=== PATIENT | male | born 1960 | race Hispanic/Latino ===

== ENCOUNTER 2018-06-14 16:41 | Inpatient (IN) | payer OTHER | END 2018-06-20 17:00 | disposition home or self-care (01) | LOC: EDH 16:41 → EDHIP 19:00 → 3CH 20:51 | DX: L03.312 Cellulitis of back [any part except buttock and flank] (principal); Z68.42 Body mass index [BMI] 45.0-49.9, adult; L03.90 Cellulitis, unspecified; I10 Essential (primary) hypertension; E11.65 Type 2 diabetes mellitus with hyperglycemia; E66.01 Morbid (severe) obesity due to excess calories; L02.212 Cutaneous abscess of back [any part, except buttock and flank] ==

== ENCOUNTER 2018-06-26 08:58 | Emergency (ER) | payer OTHER ==
[~2018-06-26 08:58] MED LIST: AMLO5TAB9 PO; ATOR-2 PO; DULO20CA17 PO; FISH1CAP20 PO; GABA-531 PO; HYDR-4064 PO; HYDR25TA PO; LEVO25TA54 PO; LISI40TA4 PO; METF-446 PO; NAPR-1023 PO; TYL3 PO
[2018-06-26 09:58] LABS: BASOPHILS % (AUTO) 1.4 % (0.0-5.0); EOSINOPHILS % (AUTO) 4.1 % (0.0-8.0); HEMATOCRIT 41.9 % (42-54); LYMPHOCYTES % (AUTO) 33.7 % (21.0-51.0); MEAN CORPUSCULAR HEMOGLOBIN 29.5 pg (27.0-33.0); MEAN CORPUSCULAR HGB CONC 33.4 g/dL (32.0-36.0); MEAN CORPUSCULAR VOLUME 88.4 fL (79-99); MONOCYTES % (AUTO) 8.2 % (3.0-13.0); NEUTROPHILS % (AUTO) 52.6 % (40.0-77.0); PLATELET COUNT (AUTO) 258 K/uL (130-400); RED BLOOD CELL COUNT(AUTO) 4.74 MIL/uL (4.50-6.20); RED CELL DISTRIBUTION WIDTH 13.6 % (11.0-15.5); WHITE BLOOD COUNT (AUTO) 8.5 K/uL (4.8-10.8)
[2018-06-26 10:10] LABS: CREATININE 0.8 mg/dL (0.5-1.5)
[2018-06-26 10:16] LABS: ALBUMIN 3.9 g/dL (3.5-5.0); BILIRUBIN,TOTAL 0.4 mg/dL (0.2-1.0); TOTAL PROTEIN, SERUM 7.5 g/dL (6.0-8.3)
[2018-06-26 11:01] LABS: APPEARANCE,URINE Clear (CLEAR); BILIRUBIN,URINE Negative (NEGATIVE); COLOR,URINE Yellow (YELLOW); GLUCOSE, URINE (UA) >=1000 mg/dL (NEGATIVE); KETONES,URINE Negative (NEGATIVE); LEUKOCYTE ESTERASE ,URINE Negative (NEGATIVE); NITRATE,URINE Negative (NEGATIVE); OCCULT BLOOD,URINE Negative (NEGATIVE); PH,URINE 5.5 (5.0-8.0); PROTEIN,URINE POS 1+ (NEGATIVE); UROBILINOGEN,URINE 0.2 mg/dL (0.2-1.0)
[2018-06-26 11:13] LABS: BACTERIA,URINE Rare /HPF (None Seen); RBC,URINE None Seen /HPF (0-1); SQUAMOUS EPITHELIAL CELL,UR Rare /HPF (0-2); WBC,URINE 0-1 /HPF (0-1)
== END 2018-06-26 15:06 | disposition home or self-care (01) ==
LOC: EDH 08:58
DX: R11.2 Nausea with vomiting, unspecified (principal); T50.995A Adverse effect of other drugs, medicaments and biological substances, initial encounter; R10.84 Generalized abdominal pain; E11.9 Type 2 diabetes mellitus without complications; E78.5 Hyperlipidemia, unspecified; I10 Essential (primary) hypertension; E07.9 Disorder of thyroid, unspecified; Z79.4 Long term (current) use of insulin; Y92.89 Other specified places as the place of occurrence of the external cause
CPT/HCPCS: 36415; 80053; 81001; 82150; 83690; 84484; 85025; 93005; 96360; 96361

== ENCOUNTER 2018-09-27 20:05 | Emergency (ER) | payer OTHER ==
[2018-09-27] MEDS ORDERED: ACETAMINOPHEN EXTRA STRENGTH 500 MG TABLET ONE (20:22)
== END 2018-09-27 22:09 | disposition home or self-care (01) ==
LOC: EDH 20:05
DX: R21 Rash and other nonspecific skin eruption (principal); M79.605 Pain in left leg; L29.9 Pruritus, unspecified; E11.9 Type 2 diabetes mellitus without complications; E78.5 Hyperlipidemia, unspecified; I10 Essential (primary) hypertension; E07.9 Disorder of thyroid, unspecified; Z86.718 Personal history of other venous thrombosis and embolism
CPT/HCPCS: 93971

== ENCOUNTER 2019-01-18 19:36 | Emergency (ER) | payer OTHER ==
[~2019-01-18 19:36] MED LIST changes: -DULO20CA17 PO; +DULO20CA18 PO
[2019-01-18 20:52] LABS: BASOPHILS % (AUTO) 1.1 % (0.0-5.0); HEMATOCRIT 39.4 % (42-54); MEAN CORPUSCULAR HEMOGLOBIN 30.3 pg (27.0-33.0); MEAN CORPUSCULAR HGB CONC 33.9 g/dL (32.0-36.0); MEAN CORPUSCULAR VOLUME 89.3 fL (79-99); MONOCYTES % (AUTO) 9.6 % (3.0-13.0); NEUTROPHILS % (AUTO) 46.3 % (40.0-77.0); PLATELET COUNT (AUTO) 182 K/uL (130-400); RED BLOOD CELL COUNT(AUTO) 4.42 MIL/uL (4.50-6.20); RED CELL DISTRIBUTION WIDTH 13.5 % (11.0-15.5); WHITE BLOOD COUNT (AUTO) 7.8 K/uL (4.8-10.8)
[2019-01-18 21:04] LABS: POTASSIUM 3.6 mmol/L (3.5-5.1)
[2019-01-18 21:09] LABS: ALBUMIN 3.8 g/dL (3.5-5.0); BILIRUBIN,TOTAL 0.2 mg/dL (0.2-1.0); TOTAL PROTEIN, SERUM 7.1 g/dL (6.0-8.3)
[2019-01-18] MEDS ORDERED: DiphenhydrAMINE HCL 50 MG/ML VIAL ONE (22:03)
[2019-01-18] MEDS ORDERED: ACETAMINOPHEN 325 MG TAB ONE (22:03)
== END 2019-01-18 23:12 | disposition home or self-care (01) ==
LOC: EDH 19:36
DX: T78.3XXA Angioneurotic edema, initial encounter (principal); R51 Headache; E11.9 Type 2 diabetes mellitus without complications; E78.5 Hyperlipidemia, unspecified; I10 Essential (primary) hypertension; E07.9 Disorder of thyroid, unspecified; Z86.718 Personal history of other venous thrombosis and embolism; Z98.890 Other specified postprocedural states
CPT/HCPCS: 36415; 70450; 80053; 84484; 85025; 93005; 96374; 99285; J1200

== ENCOUNTER 2019-03-29 11:32 | Emergency (ER) | payer OTHER ==
[2019-03-29 13:21] LABS: CREATININE 1.1 mg/dL (0.5-1.5); POTASSIUM 3.8 mmol/L (3.5-5.1)
[2019-03-29 13:26] LABS: ALBUMIN 3.7 g/dL (3.5-5.0); BILIRUBIN,DIRECT 0.1 mg/dL (0.0-0.3); BILIRUBIN,TOTAL 0.2 mg/dL (0.2-1.0); TOTAL PROTEIN, SERUM 7.2 g/dL (6.0-8.3)
[2019-03-29] MEDS ORDERED: ACETAMINOPHEN EXTRA STRENGTH 500 MG TABLET ONE (14:04)
[2019-03-29 14:08] LABS: B-TYPE NATRIURETIC PEPTIDE 12 pg/mL (0-100)
[2019-03-29 14:10] LABS: BASOPHILS % (AUTO) 1.4 % (0.0-5.0); EOSINOPHILS % (AUTO) 3.7 % (0.0-8.0); HEMATOCRIT 37.9 % (42-54); LYMPHOCYTES % (AUTO) 18.7 % (21.0-51.0); MEAN CORPUSCULAR HEMOGLOBIN 30.5 pg (27.0-33.0); MEAN CORPUSCULAR VOLUME 89.7 fL (79-99); MONOCYTES % (AUTO) 8.2 % (3.0-13.0); NUCLEATED RED BLOOD CELLS 0.1 % (0.0-0.19); PLATELET COUNT (AUTO) 222 K/uL (130-400); RED BLOOD CELL COUNT(AUTO) 4.23 MIL/uL (4.50-6.20); RED CELL DISTRIBUTION WIDTH 13.8 % (11.0-15.5); WHITE BLOOD COUNT (AUTO) 11.1 K/uL (4.8-10.8)
[2019-03-29] MEDS ORDERED: CEFTRIAXONE SODIUM 1 GM ONE (15:07)
== END 2019-03-29 16:07 | disposition home or self-care (01) ==
LOC: EDH 11:32
DX: L03.116 Cellulitis of left lower limb (principal); R60.0 Localized edema; E11.9 Type 2 diabetes mellitus without complications; E78.5 Hyperlipidemia, unspecified; I10 Essential (primary) hypertension; E07.9 Disorder of thyroid, unspecified; Z79.4 Long term (current) use of insulin
CPT/HCPCS: 36415; 71046; 80048; 80076; 83605; 83880; 85025; 93970; 96374; 99285; J0696

== ENCOUNTER 2020-05-22 11:56 | Emergency (ER) | payer OTHER ==
[~2020-05-22 11:56] MED LIST changes: +AMLO-257 PO; -AMLO5TAB9 PO
[2020-05-22] MEDS ORDERED: MAG HYDROX/AL HYDROX/SIMETH ES 30 ML SUSP UDCUP ONE (12:31)
[2020-05-22] MEDS ORDERED: ONDANSETRON ODT 4 MG TAB ONE (12:31)
[2020-05-22] MEDS ORDERED: LIDOCAINE HCL 2% VISCOUS 15 ML UDCUP ONE (12:31)
[2020-05-22 12:34] LABS: BASOPHILS % (AUTO) 0.9 % (0.0-5.0); EOSINOPHILS % (AUTO) 14.3 % (0.0-8.0); HEMATOCRIT 42.4 % (42-54); LYMPHOCYTES % (AUTO) 27.4 % (21.0-51.0); MEAN CORPUSCULAR HEMOGLOBIN 29.4 pg (27.0-33.0); MEAN CORPUSCULAR VOLUME 88.9 fL (79-99); NEUTROPHILS % (AUTO) 50.1 % (40.0-77.0); PLATELET COUNT (AUTO) 258 K/uL (130-400); RED BLOOD CELL COUNT(AUTO) 4.77 MIL/uL (4.50-6.20); RED CELL DISTRIBUTION WIDTH 12.7 % (11.0-15.5); WHITE BLOOD COUNT (AUTO) 10.7 K/uL (4.8-10.8)
[2020-05-22 12:46] LABS: CREATININE 1.1 mg/dL (0.5-1.5); POTASSIUM 4.5 mmol/L (3.5-5.1)
[2020-05-22 12:53] LABS: ALBUMIN 3.4 g/dL (3.5-5.0); BILIRUBIN,TOTAL 0.4 mg/dL (0.2-1.0); TOTAL PROTEIN, SERUM 7.3 g/dL (6.0-8.3)
[2020-05-22 14:11] LABS: APPEARANCE,URINE Clear (CLEAR); BILIRUBIN,URINE Negative (NEGATIVE); COLOR,URINE Yellow (YELLOW); GLUCOSE, URINE (UA) 500 mg/dL (NEGATIVE); KETONES,URINE Trace mg/dL (NEGATIVE); LEUKOCYTE ESTERASE ,URINE Negative (NEGATIVE); NITRATE,URINE Negative (NEGATIVE); OCCULT BLOOD,URINE Trace (NEGATIVE); PH,URINE 5.5 (5.0-8.0); PROTEIN,URINE >=1000 mg/dL (NEGATIVE)
[2020-05-22] MEDS ORDERED: SODIUM CHLORIDE 0.9% 1000ML 1,000 ML IV ONE (14:36)
[2020-05-22] MEDS ORDERED: FAMOTIDINE/PF 20 MG/2 ML VIAL IV ONE (14:36)
[2020-05-22 14:42] LABS: BACTERIA,URINE Few /HPF (None Seen); MUCUS,URINE Few LPF (None Seen); RBC,URINE 0-1 /HPF (0-1); SQUAMOUS EPITHELIAL CELL,UR Few /HPF (0-2); WBC,URINE 0-1 /HPF (0-1)
[2020-05-22] MEDS ORDERED: IOHEXOL 350 MG/ML 100ML INFUS..BTL IV ONE (15:06)
== END 2020-05-22 16:48 | disposition home or self-care (01) ==
LOC: EDH 11:56
DX: R10.84 Generalized abdominal pain (principal); M79.605 Pain in left leg; R11.10 Vomiting, unspecified; E13.65 Other specified diabetes mellitus with hyperglycemia; I10 Essential (primary) hypertension; E78.5 Hyperlipidemia, unspecified; Z98.890 Other specified postprocedural states; Z86.718 Personal history of other venous thrombosis and embolism
CPT/HCPCS: 36415; 74021; 74177; 80053; 81001; 82150; 82550; 83605 ×3; 83690; 84484; 85025; 93005; 93971; 96361; 96374; 99285; J3490; J7030; Q9967

== ENCOUNTER 2020-05-26 21:00 | Emergency (ER) | payer OTHER ==
[~2020-05-26 21:00] MED LIST changes: -LISI40TA4 PO; +LISI40TA9 PO
[2020-05-26] MEDS ORDERED: ACETAMINOPHEN EXTRA STRENGTH 500 MG TABLET ONE (21:27)
[2020-05-26] MEDS ORDERED: TETANUS/DIPHTHERIA TOXOID [ADULT] 0.5 ML VIAL IM ONE (21:28)
== END 2020-05-26 22:23 | disposition home or self-care (01) ==
LOC: EDH 21:00
DX: S91.341A Puncture wound with foreign body, right foot, initial encounter (principal); E11.9 Type 2 diabetes mellitus without complications; E78.5 Hyperlipidemia, unspecified; I10 Essential (primary) hypertension; Y93.A3 Activity, aerobic and step exercise; Y93.89 Activity, other specified; Y92.89 Other specified places as the place of occurrence of the external cause; Y99.8 Other external cause status
CPT/HCPCS: 73630; 90471; 90714

== ENCOUNTER 2023-02-27 21:07 | Emergency (ER) | payer OTHER ==
[~2023-02-27] VITALS: Ht 175.3 cm; Wt 139.7 kg
[~2023-02-27 21:07] MED LIST changes: +AEC81 PO; -ATOR-2 PO; +CHOL200012 PO; +CLOP75TA32 PO; -DULO20CA18 PO; +EMPA25TA PO; +EZET10TA48 PO; +FERR-72 PO; -FISH1CAP20 PO; +FURO20TA6 PO; -GABA-531 PO; +GABA600T10 PO; -HYDR-4064 PO; -HYDR25TA PO; +IBUP-2077 PO; -METF-446 PO; +METO50TA18 PO; -NAPR-1023 PO; +PANT20TA18 PO; +PIOG15TA66 PO; +ROSU20TA73 PO; -TYL3 PO
[2023-02-27] MEDS ORDERED: MORPHINE 4 MG SYG IVP ONE (22:00)
[2023-02-27] MEDS ORDERED: ONDANSETRON 4MG INJ IVP ONE (22:00)
[2023-02-27] MEDS ORDERED: MELO-106 PO (23:02)
[2023-02-27] MEDS ORDERED: ACET-2079 PO (23:02)
[2023-02-27 23:06] VITALS: BP 138/50; PULSE 67; RESP 16; O2SAT 97
== END 2023-02-27 23:25 | disposition home or self-care (01) ==
LOC: EDH 21:07
DX: S83.92XA Sprain of unspecified site of left knee, initial encounter (principal); E11.9 Type 2 diabetes mellitus without complications; I10 Essential (primary) hypertension; Z79.02 Long term (current) use of antithrombotics/antiplatelets; Z79.82 Long term (current) use of aspirin; Z79.84 Long term (current) use of oral hypoglycemic drugs; Z79.890 Hormone replacement therapy; Z79.899 Other long term (current) drug therapy; Z95.1 Presence of aortocoronary bypass graft; W18.39XA Other fall on same level, initial encounter; Y93.89 Activity, other specified; Y92.89 Other specified places as the place of occurrence of the external cause; Y99.8 Other external cause status
CPT/HCPCS: 99284; 96374; 96375; 73562; J2405; J2270

== ENCOUNTER → 2023-05-15 | Outpatient (CLI) | payer OTHER ==
[~2023-05-15] MED LIST changes: +ACET-2079 PO; +EMPA10TA PO; +HYDR25TA PO; +INSU500V SQ; +MELO-106 PO; +METF-444 PO; +NITR0.4T50 SL; +ROPI0.2535 PO; +SERT-439 PO
[2023-05-15 16:10] LABS: BASOPHILS # (AUTO) 0.14 K/uL (0.00-0.20); BASOPHILS % (AUTO) 1.1 % (0.0-5.0); EOSINOPHILS # (AUTO) 1.31 K/uL (0.00-0.70); EOSINOPHILS % (AUTO) 10.3 % (0.0-8.0); HEMATOCRIT 42.2 % (42-54); IMMATURE GRANULOCYTE ABSOLUTE 0.07 K/uL (0-1); LYMPHOCYTES # (AUTO) 3.3 K/uL (1.0-4.8); LYMPHOCYTES % (AUTO) 25.6 % (21.0-51.0); MEAN CORPUSCULAR HEMOGLOBIN 29.4 pg (27.0-33.0); MEAN CORPUSCULAR HGB CONC 32.2 g/dL (32.0-36.0); MEAN CORPUSCULAR VOLUME 91.3 fL (79-99); MONOCYTES # (AUTO) 1.1 K/uL (0.1-1.0); MONOCYTES % (AUTO) 8.8 % (3.0-13.0); NEUTROPHILS # (AUTO) 6.8 K/uL (1.8-7.7); NEUTROPHILS % (AUTO) 53.6 % (40.0-77.0); PLATELET COUNT (AUTO) 261 K/uL (130-400); RED BLOOD CELL COUNT(AUTO) 4.62 MIL/uL (4.50-6.20); RED CELL DISTRIBUTION WIDTH 14.2 % (11.0-15.5); WHITE BLOOD COUNT (AUTO) 12.7 K/uL (4.8-10.8)
[2023-05-15 16:24] LABS: ALBUMIN 3.4 g/dL (3.5-5.0); BILIRUBIN,TOTAL 0.2 mg/dL (0.2-1.0); CREATININE 1.2 mg/dL (0.5-1.5); TOTAL PROTEIN, SERUM 7.2 g/dL (6.0-8.3)
[2023-05-15 16:34] LABS: B-TYPE NATRIURETIC PEPTIDE 87 pg/mL (0-100)
== END | disposition home or self-care (01) ==
LOC: LAB 14:33
PROVIDERS: ATTEND Internal Medicine Cardiovascular Disease
DX: R06.09 Other forms of dyspnea (principal); R60.9 Edema, unspecified; R55 Syncope and collapse
CPT/HCPCS: 36415; 80053; 83880; 85025; 85378

== ENCOUNTER 2023-05-16 07:50 | Observation (INO) | payer MEDICARE, OTHER ==
[~2023-05-16] VITALS: Ht 175.3 cm; Wt 142.4 kg
[~2023-05-16 07:50] MED LIST changes: -EMPA10TA PO; -HYDR25TA PO; -INSU500V SQ; -METF-444 PO; -NITR0.4T50 SL; -ROPI0.2535 PO; -SERT-439 PO
[2023-05-16 08:19] LABS: BASOPHILS # (AUTO) 0.12 K/uL (0.00-0.20); BASOPHILS % (AUTO) 1.1 % (0.0-5.0); EOSINOPHILS # (AUTO) 1.32 K/uL (0.00-0.70); EOSINOPHILS % (AUTO) 12.3 % (0.0-8.0); HEMATOCRIT 41.5 % (42-54); IMMATURE GRANULOCYTE ABSOLUTE 0.07 K/uL (0-1); LYMPHOCYTES # (AUTO) 2.8 K/uL (1.0-4.8); LYMPHOCYTES % (AUTO) 26.4 % (21.0-51.0); MEAN CORPUSCULAR HEMOGLOBIN 30.1 pg (27.0-33.0); MEAN CORPUSCULAR VOLUME 91.2 fL (79-99); MONOCYTES % (AUTO) 9.3 % (3.0-13.0); NEUTROPHILS # (AUTO) 5.4 K/uL (1.8-7.7); NEUTROPHILS % (AUTO) 50.2 % (40.0-77.0); PLATELET COUNT (AUTO) 234 K/uL (130-400); RED BLOOD CELL COUNT(AUTO) 4.55 MIL/uL (4.50-6.20); RED CELL DISTRIBUTION WIDTH 13.9 % (11.0-15.5); WHITE BLOOD COUNT (AUTO) 10.7 K/uL (4.8-10.8)
[2023-05-16 08:30] LABS: CREATININE 1.1 mg/dL (0.5-1.5); POTASSIUM 3.9 mmol/L (3.5-5.1)
[2023-05-16 08:34] LABS: ALBUMIN 3.2 g/dL (3.5-5.0); BILIRUBIN,TOTAL 0.3 mg/dL (0.2-1.0)
[2023-05-16 08:36] LABS: B-TYPE NATRIURETIC PEPTIDE 60 pg/mL (0-100)
[2023-05-16 09:01] LABS: INR <= 0.93 (0.85-1.15); PROTHROMBIN TIME 10.3 SEC (9.6-11.6)
[2023-05-16 09:02] LABS: PARTIAL THROMBOPLASTIN TIME 29.6 SEC (26.3-35.5)
[2023-05-16] MEDS ORDERED: IOHEXOL 350 MG/ML 100ML INFUS..BTL IV ONE (09:15)
[2023-05-16] MEDS ORDERED: METF-444 PO (13:02)
[2023-05-16] MEDS ORDERED: LISI40TA9 PO (13:02)
[2023-05-16] MEDS ORDERED: SERT-439 PO (13:02)
[2023-05-16] MEDS ORDERED: EMPA10TA PO (13:02)
[2023-05-16] MEDS ORDERED: ROPI0.2535 PO (13:09)
[2023-05-16] MEDS ORDERED: NITR0.4T50 SL (13:09)
[2023-05-16] MEDS ORDERED: HYDR25TA PO (13:10)
[2023-05-16] MEDS ORDERED: ACETAMINOPHEN 325 MG TAB PO PRN (13:30)
[2023-05-16] MEDS ORDERED: DEXTROSE 50%-WATER 50 ML DISP.SYRIN IV PRN (13:30)
[2023-05-16] MEDS ORDERED: IPRATROPIUM/ALBUTEROL SULFATE 3 ML SOLUTION IH PRN (13:30)
[2023-05-16] MEDS ORDERED: GLUCAGON 1MG KIT 1 MG ML IM PRN (13:30)
[2023-05-16] MEDS ORDERED: ONDANSETRON 4MG INJ IVP PRN (13:30)
[2023-05-16 14:02] VITALS: PULSE 60; RESP 16; O2SAT 98
[2023-05-16 14:06] LABS: HEMOGLOBIN A1C 6.8 % (4.0-6.0)
[2023-05-16 14:08] LABS: THYROID STIMULATING HORMONE 3.47 uIU/mL (0.36-3.74)
[2023-05-16] MEDS: PANTOPRAZOLE 40 MG TAB DR PO SCH (14:11)
[2023-05-16] MEDS ORDERED: INSU500V SQ ×2 (14:58→15:00)
[2023-05-16] MEDS ORDERED: NITROGLYCERIN 0.4 MG SL TAB SL PRN (15:00)
[2023-05-16] MEDS: INSULIN HUMULIN R 100 UNIT/ML 3ML SQ SCH ×2 (16:30→21:00)
[2023-05-16] MEDS ORDERED: NON-FORMULARY MEDICATION 1 EACH (Gabapentin 600 MG) PO SCH (17:00)
[2023-05-16] MEDS: GABAPENTIN 300 MG CAPSULE PO SCH ×2 (17:56→22:16)
[2023-05-16 19:03] VITALS: PULSE 61; RESP 16; O2SAT 91
[2023-05-16 21:00] VITALS: O2SAT 96
[2023-05-16] MEDS ORDERED: INSULIN HUMULIN R 100 UNIT/ML 3ML SQ SCH (21:00)
[2023-05-16] MEDS ORDERED: NON-FORMULARY MEDICATION 1 EACH (Rosuvastatin Calcium 20 MG) PO SCH (21:00)
[2023-05-16] MEDS: ATORVASTATIN 40 MG TABLET PO SCH (22:15)
[2023-05-16] MEDS: FUROSEMIDE 20 MG TABLET PO SCH (22:16)
[2023-05-16] MEDS: METOPROLOL TARTRATE 50 MG TAB PO SCH (22:16)
[2023-05-16] MEDS: EZETIMIBE 10 MG TAB PO SCH (22:16)
[2023-05-16] MEDS: ROPINIROLE HCL 0.25 MG TABLET PO SCH (22:17)
[2023-05-16] MEDS: ENOXAPARIN SODIUM 40 MG/0.4 ML SYRINGE SQ SCH (22:22)
[2023-05-17] VITALS (9 sets, daily range): BP systolic 121–155; BP diastolic 57–77; PULSE 52–67; RESP 17–23; O2SAT 93–95
[2023-05-17 04:03] LABS: EOSINOPHILS # (AUTO) 1.27 K/uL (0.00-0.70); EOSINOPHILS % (AUTO) 12.2 % (0.0-8.0); HEMATOCRIT 42.2 % (42-54); IMMATURE GRANULOCYTE ABSOLUTE 0.05 K/uL (0-1); LYMPHOCYTES % (AUTO) 28.8 % (21.0-51.0); MEAN CORPUSCULAR HEMOGLOBIN 29.6 pg (27.0-33.0); MEAN CORPUSCULAR HGB CONC 32.7 g/dL (32.0-36.0); MEAN CORPUSCULAR VOLUME 90.6 fL (79-99); MONOCYTES # (AUTO) 0.9 K/uL (0.1-1.0); MONOCYTES % (AUTO) 8.3 % (3.0-13.0); NEUTROPHILS # (AUTO) 5.1 K/uL (1.8-7.7); NEUTROPHILS % (AUTO) 49.2 % (40.0-77.0); PLATELET COUNT (AUTO) 248 K/uL (130-400); RED BLOOD CELL COUNT(AUTO) 4.66 MIL/uL (4.50-6.20); RED CELL DISTRIBUTION WIDTH 13.9 % (11.0-15.5); WHITE BLOOD COUNT (AUTO) 10.4 K/uL (4.8-10.8)
[2023-05-17 04:16] LABS: ALBUMIN 3.2 g/dL (3.5-5.0); BILIRUBIN,TOTAL 0.3 mg/dL (0.2-1.0); CREATININE 1.2 mg/dL (0.5-1.5); POTASSIUM 3.9 mmol/L (3.5-5.1)
[2023-05-17] MEDS ORDERED: REGADENOSON 0.4 MG/5 ML PF SYG IVP SCH (07:00)
[2023-05-17] MEDS: INSULIN HUMULIN R 100 UNIT/ML 3ML SQ SCH ×7 (07:30→20:14)
[2023-05-17] MEDS: FERROUS SULFATE 325 MG TABLET.DR PO SCH (07:42)
[2023-05-17] MEDS ORDERED: NON-FORMULARY MEDICATION 1 EACH (Ferrous Sulfate 325 MG) PO SCH (08:00)
[2023-05-17] MEDS: D3 PO SCH (09:00)
[2023-05-17] MEDS: HYDROCHLOROTHIAZIDE 25 MG TABLET PO SCH (10:30)
[2023-05-17] MEDS: EMPAGLIFLOZIN 25MG TABLET PO SCH (10:30)
[2023-05-17] MEDS: CLOPIDOGREL 75MG TAB PO SCH (10:30)
[2023-05-17] MEDS: METOPROLOL TARTRATE 50 MG TAB PO SCH ×2 (10:30→20:05)
[2023-05-17] MEDS: SERTRALINE HCL 50 MG TABLET PO SCH (10:30)
[2023-05-17] MEDS: AMLODIPINE 5 MG TAB PO SCH (10:30)
[2023-05-17] MEDS: FUROSEMIDE 20 MG TABLET PO SCH ×2 (10:31→20:05)
[2023-05-17] MEDS: ASPIRIN 81 MG EC TAB PO SCH (10:31)
[2023-05-17] MEDS: LEVOTHYROXINE 25 MCG TABLET PO SCH (10:31)
[2023-05-17] MEDS: LISINOPRIL 40 MG TABLET PO SCH (10:31)
[2023-05-17] MEDS: GABAPENTIN 300 MG CAPSULE PO SCH ×4 (10:35→20:05)
[2023-05-17] MEDS: ROPINIROLE HCL 0.25 MG TABLET PO SCH ×3 (10:35→20:05)
[2023-05-17] MEDS: PANTOPRAZOLE 40 MG TAB DR PO SCH (12:04)
[2023-05-17] MEDS: ATORVASTATIN 40 MG TABLET PO SCH (20:05)
[2023-05-17] MEDS: EZETIMIBE 10 MG TAB PO SCH (20:05)
[2023-05-17] MEDS: ENOXAPARIN SODIUM 40 MG/0.4 ML SYRINGE SQ SCH (20:06)
[2023-05-18 04:00] VITALS: BP 154/75; PULSE 61; RESP 22
[2023-05-18 04:11] LABS: BASOPHILS # (AUTO) 0.12 K/uL (0.00-0.20); BASOPHILS % (AUTO) 1.1 % (0.0-5.0); EOSINOPHILS # (AUTO) 1.21 K/uL (0.00-0.70); EOSINOPHILS % (AUTO) 11.5 % (0.0-8.0); HEMATOCRIT 40.8 % (42-54); IMMATURE GRANULOCYTE ABSOLUTE 0.05 K/uL (0-1); LYMPHOCYTES # (AUTO) 2.9 K/uL (1.0-4.8); LYMPHOCYTES % (AUTO) 27.8 % (21.0-51.0); MEAN CORPUSCULAR HEMOGLOBIN 29.5 pg (27.0-33.0); MEAN CORPUSCULAR HGB CONC 32.8 g/dL (32.0-36.0); MEAN CORPUSCULAR VOLUME 89.7 fL (79-99); MONOCYTES # (AUTO) 0.9 K/uL (0.1-1.0); NEUTROPHILS # (AUTO) 5.3 K/uL (1.8-7.7); NEUTROPHILS % (AUTO) 50.1 % (40.0-77.0); PLATELET COUNT (AUTO) 238 K/uL (130-400); RED BLOOD CELL COUNT(AUTO) 4.55 MIL/uL (4.50-6.20); RED CELL DISTRIBUTION WIDTH 13.8 % (11.0-15.5); WHITE BLOOD COUNT (AUTO) 10.5 K/uL (4.8-10.8)
[2023-05-18 04:55] LABS: B-TYPE NATRIURETIC PEPTIDE 23 pg/mL (0-100)
[2023-05-18] MEDS: INSULIN HUMULIN R 100 UNIT/ML 3ML SQ SCH ×4 (05:17→11:32)
[2023-05-18 07:00] VITALS: BP 156/61; PULSE 64; RESP 16
[2023-05-18 07:45] VITALS: O2SAT 93
[2023-05-18] MEDS: HYDROCHLOROTHIAZIDE 25 MG TABLET PO SCH (08:06)
[2023-05-18] MEDS: ASPIRIN 81 MG EC TAB PO SCH (08:06)
[2023-05-18] MEDS: METOPROLOL TARTRATE 50 MG TAB PO SCH (08:06)
[2023-05-18] MEDS: ROPINIROLE HCL 0.25 MG TABLET PO SCH ×2 (08:06→13:05)
[2023-05-18] MEDS: CLOPIDOGREL 75MG TAB PO SCH (08:06)
[2023-05-18] MEDS: FERROUS SULFATE 325 MG TABLET.DR PO SCH (08:06)
[2023-05-18] MEDS: LEVOTHYROXINE 25 MCG TABLET PO SCH (08:07)
[2023-05-18] MEDS: FUROSEMIDE 20 MG TABLET PO SCH (08:07)
[2023-05-18] MEDS: GABAPENTIN 300 MG CAPSULE PO SCH ×2 (08:07→12:17)
[2023-05-18] MEDS: AMLODIPINE 5 MG TAB PO SCH (08:07)
[2023-05-18] MEDS: EMPAGLIFLOZIN 25MG TABLET PO SCH (08:07)
[2023-05-18] MEDS: SERTRALINE HCL 50 MG TABLET PO SCH (08:10)
[2023-05-18] MEDS: LISINOPRIL 40 MG TABLET PO SCH (08:10)
[2023-05-18] MEDS: D3 PO SCH (08:12)
[2023-05-18] MEDS ORDERED: INSULIN GLARGINE 100 UNITS/ML 10 ML VIAL SQ SCH (09:00)
[2023-05-18] MEDS ORDERED: HYDROCORTISONE 1% CREAM 28G TP STA (09:57)
[2023-05-18 10:10] VITALS: BP 143/71; PULSE 63; RESP 16
[2023-05-18 10:16] VITALS: PULSE 70; RESP 16; O2SAT 94
[2023-05-18 10:17] VITALS: PULSE 70; PULSE 75; RESP 19; RESP 21; O2SAT 94; O2SAT 96
[2023-05-18] MEDS: PANTOPRAZOLE 40 MG TAB DR PO SCH (12:17)
[2023-05-18] MEDS ORDERED: INSLAN SQ (13:09)
== END 2023-05-18 14:30 | disposition home or self-care (01) ==
LOC: EDH 07:50 → INTOOBSV 13:06 → EDHIP 13:06 → 2AH 20:58
PROVIDERS: ADMIT Internal Medicine; ATTEND Internal Medicine
DX: R06.02 Shortness of breath (principal); I11.0 Hypertensive heart disease with heart failure; I50.810 Right heart failure, unspecified; E11.65 Type 2 diabetes mellitus with hyperglycemia; E11.42 Type 2 diabetes mellitus with diabetic polyneuropathy; E11.319 Type 2 diabetes mellitus with unspecified diabetic retinopathy without macular edema; E66.01 Morbid (severe) obesity due to excess calories; R60.0 Localized edema; R10.84 Generalized abdominal pain; E78.00 Pure hypercholesterolemia, unspecified; G47.30 Sleep apnea, unspecified; E78.5 Hyperlipidemia, unspecified; I25.10 Atherosclerotic heart disease of native coronary artery without angina pectoris; I25.110 Atherosclerotic heart disease of native coronary artery with unstable angina pectoris; K76.0 Fatty (change of) liver, not elsewhere classified; K21.9 Gastro-esophageal reflux disease without esophagitis; E88.810 Metabolic syndrome; E44.1 Mild protein-calorie malnutrition; Z91.199 Patient's noncompliance with other medical treatment and regimen due to unspecified reason; Z68.42 Body mass index [BMI] 45.0-49.9, adult; Z79.82 Long term (current) use of aspirin; Z95.1 Presence of aortocoronary bypass graft; Z79.4 Long term (current) use of insulin; Z79.84 Long term (current) use of oral hypoglycemic drugs; Z79.899 Other long term (current) drug therapy
CPT/HCPCS: 96372 ×5; 99285; 83036; 84443; 83735 ×3; 84484; 80061; 80053 ×2; 83880 ×3; 85025 ×3; 85610; 85730; 82948 ×8; 36415 ×3; 71045; 71270; 76705; 93306; 93970; 93005; 94664; 74176; 93017; 78452; 94760 ×2; J1650 ×2; Q9967; G0378 ×24; J2785; J1815 ×5; A9500 ×2; 96374

== ENCOUNTER → 2023-06-11 | Outpatient (CLI) | payer OTHER ==
[~2023-06-11] MED LIST changes: +EMPA10TA PO; +HYDR25TA PO; +INSLAN SQ; +INSU500V SQ; +METF-444 PO; +NITR0.4T50 SL; +ROPI0.2535 PO; +SERT-439 PO
== END | disposition home or self-care (01) ==
LOC: RAH 14:36
PROVIDERS: ATTEND Family Medicine
DX: S83.282A Other tear of lateral meniscus, current injury, left knee, initial encounter (principal); M25.462 Effusion, left knee; M17.12 Unilateral primary osteoarthritis, left knee; X58.XXXA Exposure to other specified factors, initial encounter; Y93.89 Activity, other specified; Y92.89 Other specified places as the place of occurrence of the external cause; Y99.8 Other external cause status
CPT/HCPCS: 73721

== ENCOUNTER → 2023-12-09 | Outpatient (CLI) | payer OTHER ==
[~2023-12-09] MED LIST changes: -ACET-2079 PO; +CARV12.511 PO; -CHOL200012 PO; +DULA0.75 SQ; -EMPA10TA PO; -FERR-72 PO; -FURO20TA6 PO; +FURO40TA5 PO; -IBUP-2077 PO; -INSLAN SQ; +INSU500I SQ; -INSU500V SQ; -MELO-106 PO; -METF-444 PO; +METF-446 PO; -METO50TA18 PO; +OMEP40CA21 PO; -PIOG15TA66 PO; -SERT-439 PO; +SPIR25TA6 PO
== END | disposition home or self-care (01) ==
LOC: SHCH 08:57
PROVIDERS: ATTEND Internal Medicine Cardiovascular Disease
DX: Z09 Encounter for follow-up examination after completed treatment for conditions other than malignant neoplasm (principal); I87.2 Venous insufficiency (chronic) (peripheral)
CPT/HCPCS: 93971

== ENCOUNTER 2024-01-01 23:16 | Emergency (ER) | payer OTHER ==
[~2024-01-01] VITALS: Ht 175.3 cm; Wt 158.8 kg
[~2024-01-01 23:16] MED LIST changes: +GABA-1405 PO; -GABA600T10 PO
[2024-01-01 23:53] LABS: BASOPHILS # (AUTO) 0.04 K/uL (0.00-0.20); BASOPHILS % (AUTO) 0.3 % (0.0-5.0); EOSINOPHILS # (AUTO) 0.29 K/uL (0.00-0.70); EOSINOPHILS % (AUTO) 2.1 % (0.0-8.0); HEMATOCRIT 39.3 % (42-54); IMMATURE GRANULOCYTE ABSOLUTE 0.09 K/uL (0-1); LYMPHOCYTES # (AUTO) 2.3 K/uL (1.0-4.8); MEAN CORPUSCULAR HGB CONC 32.3 g/dL (32.0-36.0); MEAN CORPUSCULAR VOLUME 89.7 fL (79-99); MONOCYTES # (AUTO) 0.9 K/uL (0.1-1.0); MONOCYTES % (AUTO) 6.9 % (3.0-13.0); NEUTROPHILS # (AUTO) 9.9 K/uL (1.8-7.7); PLATELET COUNT (AUTO) 245 K/uL (130-400); RED BLOOD CELL COUNT(AUTO) 4.38 MIL/uL (4.50-6.20); RED CELL DISTRIBUTION WIDTH 13.6 % (11.0-15.5); WHITE BLOOD COUNT (AUTO) 13.6 K/uL (4.8-10.8)
[2024-01-02 00:51] LABS: BILIRUBIN,DIRECT 0.1 mg/dL (0.0-0.3); BILIRUBIN,TOTAL 0.2 mg/dL (0.2-1.0); TOTAL PROTEIN, SERUM 7.8 g/dL (6.0-8.3)
[2024-01-02 00:51] LABS: ADD UA MICROSCOPIC YES; APPEARANCE,URINE CLOUDY (CLEAR); BILIRUBIN,URINE NEGATIVE (NEGATIVE); COLOR,URINE YELLOW (YELLOW); GLUCOSE, URINE (UA) >=1000 mg/dL (NEGATIVE); KETONES,URINE NEGATIVE (NEGATIVE); LEUKOCYTE ESTERASE ,URINE NEGATIVE Leu/uL (NEGATIVE); NITRATE,URINE NEGATIVE (NEGATIVE); PH,URINE 5.5 (5.0-8.0); PROTEIN,URINE 300 mg/dL (NEGATIVE); UROBILINOGEN,URINE 0.2 mg/dL (0.2-1.0)
[2024-01-02 00:52] LABS: BACTERIA,URINE RARE /HPF (None Seen); MUCUS,URINE RARE LPF (None Seen); SQUAMOUS EPITHELIAL CELL,UR RARE /HPF (0-2)
[2024-01-02] MEDS: ondanSETRON 4MG INJ IVP ONE (00:53)
[2024-01-02] MEDS: DICYCLOMINE HCL 10 MG/5 ML ML PO ONE (00:53)
[2024-01-02] MEDS: LIDOCAINE HCL 2% VISCOUS 15 ML UDCUP PO ONE (00:53)
[2024-01-02] MEDS: morPHINE 4 MG SYG IVP ONE (00:53)
[2024-01-02] MEDS: LACTATED RINGERS 1000ML 2,000 ML IV ONE (00:54)
[2024-01-02] MEDS: MAG/ALUM/SIMETH 30 ML UDCUP PO ONE (00:54)
[2024-01-02 03:15] VITALS: BP 118/58; PULSE 80; RESP 20; TEMP 98.6; O2SAT 99
== END 2024-01-02 03:14 | disposition home or self-care (01) ==
LOC: EDH 23:16
DX: K52.9 Noninfective gastroenteritis and colitis, unspecified (principal); I25.10 Atherosclerotic heart disease of native coronary artery without angina pectoris; E11.40 Type 2 diabetes mellitus with diabetic neuropathy, unspecified; I11.0 Hypertensive heart disease with heart failure; I50.9 Heart failure, unspecified; E66.01 Morbid (severe) obesity due to excess calories; E78.00 Pure hypercholesterolemia, unspecified; Z79.02 Long term (current) use of antithrombotics/antiplatelets; Z79.82 Long term (current) use of aspirin; Z79.84 Long term (current) use of oral hypoglycemic drugs; Z79.890 Hormone replacement therapy; Z79.899 Other long term (current) drug therapy; Z95.1 Presence of aortocoronary bypass graft
CPT/HCPCS: 99284; 82150; 80076; 80048; 83690; 85025; 81001; 36415 ×2; 96374; 96361; 71045; 96375; J7120; J2405; J2270